=== PATIENT | male | born 1940 | race African-American/Black ===

== ENCOUNTER 2018-12-10 09:35 | Emergency (ER) | payer OTHER, MEDICARE ==
[~2018-12-10] VITALS: Ht 182.9 cm; Wt 108.0 kg
[~2018-12-10 09:35] MED LIST: ALBUTEROL2.5 MG/31 INH; MEDROL DOSPAK21 TA1 PO; MEDROLDOSEPACK PO; PREDNISONE50 MG PO; PROAIR HFA8.5 GM INH; VENTOLIN HFA 1818 GM INH; XANAX 0.25 MG0.25 MG PO; ZPAK PO
[2018-12-10] MEDS ORDERED: ULTRAM 50MG TAB50 MG PO (10:35)
[2018-12-10 11:05] VITALS: BP 151/84
== END 2018-12-10 11:05 | disposition home or self-care (01) ==
LOC: ER 09:35
DX: S80.02XA Contusion of left knee, initial encounter (principal); J44.9 Chronic obstructive pulmonary disease, unspecified; F17.210 Nicotine dependence, cigarettes, uncomplicated; Z96.649 Presence of unspecified artificial hip joint; W01.0XXA Fall on same level from slipping, tripping and stumbling without subsequent striking against object, initial encounter; Y93.89 Activity, other specified; Y92.89 Other specified places as the place of occurrence of the external cause; Y99.8 Other external cause status

== ENCOUNTER 2020-08-06 14:27 | Emergency (ER) | payer OTHER, MEDICARE ==
[~2020-08-06] VITALS: Ht 182.9 cm; Wt 108.0 kg
[~2020-08-06 14:27] MED LIST changes: +ULTRAM 50MG TAB50 MG PO
[2020-08-06 15:40] LABS: ABSOLUTE NEUTROPHILS 5.2 thou/uL (1.4-8.2); BASOPHILS 0.5 % (0.0-2.0); HEMATOCRIT 41.2 % (42.0-52.0); HEMOGLOBIN 13.7 gm/dL (14.0-18.0); LYMPHOCYTES 27.2 % (24.0-44.0); MCH 30.1 pg (26.0-34.0); MCHC 33.3 g/dL (28.0-37.0); MCV 90.3 fL (80.0-100.0); MONOCYTES 6.8 % (1.0-8.0); PLATELET COUNT 258 thou/uL (150-400); POLYS 58.5 % (36.0-66.0); RBC 4.56 mil/uL (4.50-6.00); RDW 13.9 % (10.5-14.5); WBC 8.8 thou/uL (4.0-11.0)
[2020-08-06 15:43] LABS: CALCIUM 8.8 mg/dL (8.5-10.1); POTASSIUM 3.7 mmol/L (3.5-5.1)
[2020-08-06 15:50] LABS: ALBUMIN 3.5 g/dL (3.4-5.0); DIRECT BILIRUBIN 0.1 mg/dL (<0.1-0.2); TOTAL BILIRUBIN 0.5 mg/dL (0.2-1.0); TOTAL PROTEIN 7.5 g/dL (6.4-8.2)
[2020-08-06 17:28] VITALS: BP 133/75
--- NOTE | 2020-08-08 08:08 | EKG ---
[facility] [place] [address] ELECTROCARDIOGRAM REPORT Name: NIDHI DALEY [id number] Admission: 08/06/20 Attend Phys: Discharge: 08/06/20 Date of : 44 Report #: [id number] THIS REPORT FOR: cc: JEANETTE - Yamile family physician/PCP JEANETTE - No family physician/PCP Davey Rae MD ~ THIS REPORT FOR: //name// [facility] ED Test Date: 2020-08-06 Test Time: 15:14:59 Pat Name: NIDHI DALEY Department: Room: Gender: Bone Process Operator: LUCIUS : 1940 Requested By: Garcia Last Order Number: [id number] : Davey Rae Measurements Intervals [place] Rate: 81 P: 28 OK: 189 QRS: -60 QRSD: 90 T: 29 QT: 354 QTc: 411 Interpretive Statements Sinus rhythm Abnormal R-wave progression, early transition Inferior infarct, old Compared to ECG 07/10/2015 10:39:29 Myocardial infarct finding now present Atrial premature complex(es) no longer present Left-axis deviation no longer present Electronically Signed On 08-08-2020 8:07:49 CDT by Davey Rae [email or web address] <ELECTRONICALLY SIGNED> By: Davey Rae MD 08/08/20 0807 1514 1514 Davey [email or web address] MD /EPI
== END 2020-08-06 17:29 | disposition home or self-care (01) ==
LOC: ER 14:27
PROVIDERS: Nurse Practitioner
DX: J44.1 Chronic obstructive pulmonary disease with (acute) exacerbation (principal); F17.210 Nicotine dependence, cigarettes, uncomplicated; Z79.899 Other long term (current) drug therapy